=== PATIENT | male | born 1990 | race American Indian/Alaskan Native ===

== ENCOUNTER 2019-03-28 16:14 | Emergency (ER) | payer SELFPAY ==
[2019-03-28 16:19] VITALS: BP 112/57
[2019-03-28] MEDS ORDERED: ACETAMINOPHEN 325 MG TAB PO ONE (18:05)
== END 2019-03-28 20:46 | disposition left against medical advice (07) ==
LOC: ED 16:14
DX: R42 Dizziness and giddiness (principal); Z53.21 Procedure and treatment not carried out due to patient leaving prior to being seen by health care provider

== ENCOUNTER 2019-03-31 19:15 | Emergency (ER) | payer OTHER ==
[2019-03-31 22:02] VITALS: BP 110/57
--- NOTE | 2019-03-31 22:06 | Event Note ---
ED Screening Note ED Screening Note: generalized body aches 3-4 days +subjective fever vomiting initially but has since resolved no diarrhea +dry cough +itchy dry throat headache no rhinorrhea no SOB PMHx none no allergies to meds no known sick contacts +tobacco non drinker no drug use
--- NOTE | 2019-03-31 22:07 | Emergency Department Report ---
Chief Complaint: Abdominal Pain Stated Complaint: LIGHT HEADED/HEADACHE Time Seen by Provider: 03/31/19 22:00 - HPI History of Present Illness: generalized body aches 3-4 days +subjective fever vomiting initially but has since resolved no diarrhea +dry cough +itchy dry throat +headache no rhinorrhea no SOB PMHx none no allergies to meds no known sick contacts +tobacco non drinker no drug use vitals with low grade temp otherwise normal pt given ibuprofen on exam: non toxic appearing, no acute distress normal oropharynx normal Tms and canals no sinus TTP bilaterally regular rate/rhythm, no murmur, gallop, rubs normal breath sounds bilaterally without w/r/r no clinical s/sx of PNA pt has clinical s/sx of influenza pt is out of the 48 hour range for tamiflu no signs of dehydration discussed the importance of oral rehydration, temperature monitoring, and supportive care will refer pt to PCP for reexamination pt given strict return precautions medical screening examination performed there is no threat to life or limb - Exam Vital Signs: Vital Signs 03/31/19 22:00 Temperature 99.8 F H Pulse Rate 79 Respiratory 16 Rate Blood Pressure 110/57 O2 Sat by Pulse 100 Oximetry MSE screening note: Focused history and physical exam performed. ED Disposition for MSE Clinical Impression: Viral illness Disposition: Z MED SCREENING EXAM-LEFT Is pt being admited?: No Does the pt Need Aspirin: No Condition: Stable Instructions: Viral Syndrome (ED) Additional Instructions: please increase your fluid intake over the next several days. may alternate tylenol then ibuprofen every 4 hours as needed for a fever. may take over the counter cold/cough medication. get plenty of rest. follow up with a primary care doctor in the next 2-3 days. return to the emergency room immediately for any new or worsening symptoms. Referrals: MATY MARES MD [Staff Physician] - 2-3 Days [facility] [Outside] - 2-3 Days [facility] [Outside] - 2-3 Days Forms: Work/School Release Form(ED) Time of Disposition: 22:32 Print Language: [place]
[2019-03-31] MEDS ORDERED: IBUPROFEN 600 MG TAB PO ONE (22:34)
== END 2019-03-31 22:39 | disposition left against medical advice (07) ==
LOC: ED 19:15
DX: B34.9 Viral infection, unspecified (principal); R10.9 Unspecified abdominal pain